=== PATIENT | female | born 1940 | race Caucasian/White ===

== ENCOUNTER 2024-02-05 07:44 | Emergency (ER) | payer MEDICARE, OTHER ==
[2024-02-05] MEDS ORDERED: Sodium Chloride 0.9% 10 ML Syringe FLUSH PRN (08:20)
[2024-02-05 08:44] LABS: APPEARANCE,URINE CLEAR (CLEAR); BILIRUBIN,URINE NEGATIVE (NEGATIVE); COLOR,URINE YELLOW; GLUCOSE,URINE NEGATIVE (NEGATIVE); KETONES,URINE 15 mg/dL (NEGATIVE); LEUKOCYTE ESTERASE,URINE TRACE (NEGATIVE); NITRITE,URINE NEGATIVE (NEGATIVE); OCCULT BLOOD,URINE MODERATE (NEGATIVE); PH,URINE 5.5 (5.0-8.0); PROTEIN,URINE 100 mg/dL (NEGATIVE)
[2024-02-05 08:45] LABS: BASOPHILS ABSOLUTE AUTO 0.02 K/uL (0.02-0.10); BASOPHILS PERCENT AUTO 0.3 % (0.0-0.5); HEMATOCRIT 41.7 % (37.0-47.0); HEMOGLOBIN 13.8 g/dL (11.5-16.5); LYMPHOCYTES ABSOLUTE AUTO 1.01 K/uL (1.50-4.00); LYMPHOCYTES PERCENT AUTO 16.9 % (20.0-40.0); MEAN CORPUSCULAR HEMOGLOBIN 30.3 pg (27.0-32.0); MEAN CORPUSCULAR HGB CONC 33.1 g/dL (31.0-35.0); MEAN CORPUSCULAR VOLUME 91 fL (76-96); MONOCYTES ABSOLUTE AUTO 1.02 K/uL (0.20-0.80); MONOCYTES PERCENT AUTO 17.1 % (3.0-10.0); NEUTROPHILS ABSOLUTE AUTO 3.91 K/uL (2.00-7.50); NEUTROPHILS PERCENT AUTO 65.7 % (45.0-70.0); PLATELET COUNT,PLT 224 K/uL (150-500); RED BLOOD CELL COUNT 4.56 M/uL (3.80-5.80); RED CELL DISTRIBUTION WIDTH 13.6 % (11.0-16.0)
[2024-02-05] MEDS: Sodium Chloride 0.9% 1,000 ML IV SCH (08:57)
[2024-02-05 09:03] LABS: BACTERIA,URINE FEW /HPF; MUCUS,URINE OCCASIONAL /HPF; SQUAMOUS EPITHELIAL CELLS,UR FEW /HPF
[2024-02-05 09:08] LABS: A/G RATIO 0.9 (0.8-2.0); ALBUMIN 3.4 g/dL (3.4-5.0); BILIRUBIN TOTAL 0.8 mg/dL (0.0-1.0); BUN/CREATININE RATIO 18.8 (6-25); CALCIUM 8.7 mg/dL (8.5-10.1); CARBON DIOXIDE,CO2 35.7 mmol/L (21.0-32.0); CREATININE 0.8 mg/dL (0.55-1.02); EST CRCL DRUG DOSING (CG) 49.48 mL/min; PROTEIN TOTAL,TP 7.1 g/dL (6.4-8.2)
[2024-02-05 09:09] LABS: ANION GAP 10.1 mmol/L (5.0-15.0)
[2024-02-05 09:11] LABS: POTASSIUM,K 2.8 mmol/L (3.5-5.1)
[2024-02-05] MEDS: Potassium Chloride Riders 10 MEQ in Premix Bag 1 BAG IV ONE ×2 (09:20→10:23)
[2024-02-05 09:26] LABS: INFLUENZA A NAA NEGATIVE (NEGATIVE); INFLUENZA B NAA NEGATIVE (NEGATIVE)
[2024-02-05 09:31] LABS: CORONAVIRUS COVID-19 NAA NEGATIVE (NEGATIVE)
[2024-02-05] MEDS ORDERED: Ondansetron 4 MG/2 ML SDV ONE (10:33)
[2024-02-05] MEDS: Ondansetron 4 MG/2 ML SDV IVPUSH ONE (10:36)
== END 2024-02-05 11:33 | disposition home or self-care (01) ==
LOC: LB.ED 07:44
DX: R05.9 Cough, unspecified (principal); R42 Dizziness and giddiness; I10 Essential (primary) hypertension; Z88.5 Allergy status to narcotic agent; Z88.2 Allergy status to sulfonamides; Z88.0 Allergy status to penicillin
CPT/HCPCS: 0240U; 36415; 71046; 80053; 81001; 85025; 87086; 93005; 96365; 96366; 96375; 99285; J2405; J3480; J7030